=== PATIENT | female | born 1975 | race Caucasian/White ===

== ENCOUNTER → 2018-08-30 | Outpatient (CLI) | payer BC | LOC: SUN.DIA 14:45 | DX: O24.419 Gestational diabetes mellitus in pregnancy, unspecified control (principal); Z3A.26 26 weeks gestation of pregnancy | CPT/HCPCS: G0108 ==

== ENCOUNTER → 2018-09-06 | Outpatient (CLI) | payer BC | LOC: SUN.DIA 10:06 | DX: O24.419 Gestational diabetes mellitus in pregnancy, unspecified control (principal); Z3A.25 25 weeks gestation of pregnancy | CPT/HCPCS: G0108 ==

== ENCOUNTER → 2018-09-11 | Outpatient (CLI) | payer BC | LOC: SUN.DIA 14:08 | DX: O24.419 Gestational diabetes mellitus in pregnancy, unspecified control (principal); Z3A.18 18 weeks gestation of pregnancy ==

== ENCOUNTER → 2018-10-03 | Outpatient (CLI) | payer MEDICAID | LOC: SUN.DIA 12:53 | DX: O24.419 Gestational diabetes mellitus in pregnancy, unspecified control (principal); Z3A.19 19 weeks gestation of pregnancy | CPT/HCPCS: G0108 ==

== ENCOUNTER → 2018-11-07 | Outpatient (CLI) | payer MEDICAID | LOC: SUN.DIA 15:08 | DX: O24.419 Gestational diabetes mellitus in pregnancy, unspecified control (principal); Z3A.24 24 weeks gestation of pregnancy | CPT/HCPCS: G0108 ==

== ENCOUNTER → 2018-12-05 | Outpatient (CLI) | payer MEDICAID | LOC: SUN.DIA 14:13 | DX: O24.419 Gestational diabetes mellitus in pregnancy, unspecified control (principal); Z3A.18 18 weeks gestation of pregnancy | CPT/HCPCS: G0108 ==

== ENCOUNTER → 2019-01-15 | Outpatient (CLI) | payer MEDICAID | LOC: DIA.ED 14:09 → SUN.DIA 16:14 | DX: O24.419 Gestational diabetes mellitus in pregnancy, unspecified control (principal); Z3A.35 35 weeks gestation of pregnancy | CPT/HCPCS: G0108 ==

== ENCOUNTER → 2019-02-05 | Outpatient (CLI) | payer MEDICAID | LOC: DIA.ED 01-25 10:32 | DX: O24.419 Gestational diabetes mellitus in pregnancy, unspecified control (principal); Z3A.34 34 weeks gestation of pregnancy | CPT/HCPCS: G0108 ==

== ENCOUNTER 2019-02-21 06:56 | Inpatient (IN) | payer MEDICAID ==
[~2019-02-21] VITALS: Ht 167.6 cm; Wt 83.6 kg
[2019-02-21] VITALS (33 sets, daily range): BP systolic 12–143; BP diastolic 58–94; PULSE 79–116; TEMP 97.7–98.4
[~2019-02-21 06:56] MED LIST: CONCEPT DHA1 CAP PO
[2019-02-21] MEDS ORDERED: OSCAL 500 TAB500 MG PO (07:45)
[2019-02-21] MEDS ORDERED: COLACE 100100 MG/CAP PO (07:46)
[2019-02-21] MEDS ORDERED: LEVEMIR100 U/ML SQ (07:47)
[2019-02-21] MEDS ORDERED: PEPCID 20MG TAB20 MG PO (07:48)
[2019-02-21 08:42] LABS: BASO # 0.1 (0.0-0.2); BASO % 0.4 % (0.0-2.0); EOS # 0.1 (0.0-0.7); EOS % 1.1 % (0-4.0); GRAN # 8.2 (1.4-6.5); GRAN % 67.1 % (42.2-75.2); HEMOGLOBIN 11.4 g/dl (12.5-16.0); LYMPH # 2.7 (1.2-3.4); LYMPH % 22.2 % (20.0-51.0); MEAN CELL VOLUME 89 fl (80.0-100.0); MEAN CORPUSCULAR HEMOGLOBIN 30 pg (27.0-31.0); MEAN CORPUSCULAR HGB CONC 33 g/dl (33.0-37.0); MEAN PLATELET VOLUME 11.5 fl (7.4-10.4); MONO # 1.1 (0.1-0.6); MONO % 8.5 % (1.7-9.3); PLATELET COUNT 257 K/mm3 (130-400); RED BLOOD COUNT 3.87 M/mm3 (4.10-5.30); REDCELL DISTRIBUTION WIDTH-CV 14.7 % (11.5-14.5)
[2019-02-21 08:45] LABS: HEMATOCRIT 34.5 % (37.0-47.0)
--- NOTE | 2019-02-21 11:21 | NUR ---
1020 PT TO BATHROOM AND THEN TO A SITTING ON THE EDGE OF BED FOR EPIDURAL PLACEMENT. 1032 Bisi GRAYSON AT THE BEDSIDE FOR EPIDURAL PLACEMENT.
--- NOTE | 2019-02-21 11:27 | NUR ---
1045 PT CONTIUNES TO SIT ON EDGE OF BED FOR EPIDURAL PLACEMENT UNABLE TO TRCE FHT'S DUE TO PT'S POSTIONING.
--- NOTE | 2019-02-21 11:34 | NUR ---
1055 EPIDURAL SPACE, 1056 MED DOSE, AND CATH INSERTED, 1057 MORE MEDS GIVEN
--- NOTE | 2019-02-21 14:25 | NUR ---
1337 DR HIDALGO HERE, PT POSITIONED IN FOOTPLATES, PUSHING, SPONTANOUS DELIVERY OF MALE @ 1342, 1347 SPONTANOUS DELIVERY OF THE PLACENTA, FF WITH MASSAGE, PITOCIN DRIP INFUSES @ 333 ML/HR.
[2019-02-22] VITALS (7 sets, daily range): BP systolic 114–139; BP diastolic 76–88; PULSE 81–92; TEMP 97.4–98.6
--- NOTE | 2019-02-22 08:30 | NUR ---
Rests in bed, alert. Request pain medication. 907 Tylenol 650 mg p.o. given per request and as ordered.
[2019-02-22] MEDS ORDERED: PERCOCET 325 MG1 TA2 PO (10:00)
[2019-02-22] MEDS ORDERED: MOTRIN 800800 MG/TAB PO (10:00)
--- NOTE | 2019-02-22 11:08 | NUR ---
Initial visit; Parents thanked for offering congratulations for the of their son and for thanking them for choosing our hospital.
--- NOTE | 2019-02-22 14:30 | NUR ---
Rests in bed, alert. Request pain medication. Ibuprofen 800 mg given as ordered.
[2019-02-23 08:40] VITALS: BP 115/80; PULSE 88; TEMP 98.7
--- NOTE | 2019-02-23 11:09 | NUR ---
Patient was being discharged.
== END 2019-02-23 09:30 | disposition home or self-care (01) | DRG 807 ==
LOC: OB 06:56 → LDR 06:56 → OB 11:47
PROVIDERS: ADMIT Obstetrics & Gynecology
PROC: 10E0XZZ Delivery of Products of Conception, External Approach (ICD-10-PCS; principal; 2019-02-21)
PROC: 3E033VJ Introduction of Other Hormone into Peripheral Vein, Percutaneous Approach (ICD-10-PCS; 2019-02-21)
DX: O24.424 Gestational diabetes mellitus in childbirth, insulin controlled (principal); Z37.0 Single live birth; Z3A.39 39 weeks gestation of pregnancy; O77.0 Labor and delivery complicated by meconium in amniotic fluid; D25.9 Leiomyoma of uterus, unspecified; O69.81X0 Labor and delivery complicated by cord around neck, without compression, not applicable or unspecified
CPT/HCPCS: J2590

== ENCOUNTER 2023-03-30 09:50 | Day surgery (SDC) | payer OTHER ==
[2023-03-30] VITALS (11 sets, daily range): BP systolic 101–127; BP diastolic 65–90; PULSE 60–95; TEMP 97.6–98
[~2023-03-30] VITALS: Ht 167.6 cm; Wt 78.1 kg
[~2023-03-30 09:50] MED LIST changes: +COLACE 100100 MG/CAP PO; +LEVEMIR100 U/ML SQ; +MOTRIN 800800 MG/TAB PO; +OSCAL 500 TAB500 MG PO; +PEPCID 20MG TAB20 MG PO; +PERCOCET 325 MG1 TA2 PO
[2023-03-30] MEDS ORDERED: TAGAMET200 MG PO (10:31)
--- NOTE | 2023-03-30 16:48 | NUR ---
Patient arrived to the unit to room 350 from pacu via bed. Patient drowsy, but easily to awake. LR infusing , dennison draining clear yellow urine in bag. 5 lap site with skin glued intact. No drainage noted at site. 02 2L/NC in use. Pulses present. VSS. Call mcneill within reach. Family at bedside.
--- NOTE | 2023-03-30 19:01 | NUR ---
Roxicodone administered for abdominal pain. Patient wants to have her dennison out and educated the importance of having the dennison inserted. Patient verbalized understanding. 5 lap site dressing dry and intact.
--- NOTE | 2023-03-30 20:00 | NUR ---
PT A&O X4 LAYING IN BED. VSS. 5 ABD SITE GLUED & NO DRAINAGE PRESENT. MONTOYA IN PLACE TO DD WITH CLEAR YELLOW OUTPUT. PT REQUESTING MONTOYA BE TAKEN OUT - EDUCATION PROVIDED. SCDS ON. IVF INFUSING TO RIGHT AC. BED LOWERED & CALL LIGHT IN REACH.
--- NOTE | 2023-03-30 21:47 | NUR ---
2010: PT CALLED OUT AGAIN & REQUESTED WE CALL THE DOCTOR TO SEE IF WE CAN D/C MONTOYA. C/O PAIN FROM MONTOYA / & BURNING. EDUCATION PROVIDED ON USE OF MONTOYA. 2014: CALLED DR MUHAMMAD. ORDERS TO D/C MONTOYA & MONITOR I&O THROUGHOUT THE NIGHT. 2019: D/C MONTOYA W/ TIP INTACT & 10CC OUT OF BALLOON. 200CC OF CLEAR YELLOW OUTPUT IN DRAINAGE BAG. NO DRAINAGE ON PERIPAD. HAT PLACED IN BATHROOM & EDUCATED PT ON USE. 2124: PT AMBULATED TO RESTROOM & VOIDED 400CC. BLADDER SCAN AFTER W/ 50ML.
[2023-03-31 00:02] VITALS: BP_SYST 111
[2023-03-31 03:08] VITALS: BP 100/59; PULSE 72; TEMP 98
[2023-03-31 03:11] VITALS: BP_SYST 100
--- NOTE | 2023-03-31 07:25 | NUR ---
Shift report received from the night nurse, SANJEEV Golden.
--- NOTE | 2023-03-31 07:58 | NUR ---
Patient awake in bed, alert and oriented. 5 lap site with skin glued dry and intact. Patient reports of scant amount of discharge in sonido pad. Patient c/o abdominal pain and rated pain level 6/10. Levsine and roxicodone administered. Informed patient about the plan of walking in the hallway after breakfast. Patient verbalized understanding.
[2023-03-31 08:09] VITALS: BP 96/59; PULSE 75; TEMP 98.7
[2023-03-31 09:00] VITALS: BP_SYST 96
--- NOTE | 2023-03-31 09:25 | NUR ---
Initial visit attempt; Patient sleeping, Journeyman Pressman left card offering God's blessings and information regarding the availability of [facility] at our Hospital.
--- NOTE | 2023-03-31 10:30 | NUR ---
Discharge instruction given, and INT discontinued. Patient has no other questions. Patient states her escort will be available around 1230 for shredder picker.
[2023-03-31 13:00] VITALS: BP_SYST 96
--- NOTE | 2023-03-31 13:24 | NUR ---
Patient discharged home at 1230. Patient has no questions or concerns.
== END 2023-03-31 12:30 | disposition home or self-care (01) ==
LOC: SDCO 09:50 → SURG 16:24 → SDCO 03-31 12:30
DX: D25.1 Intramural leiomyoma of uterus (principal); N80.03 Adenomyosis of the uterus; R33.9 Retention of urine, unspecified; K21.9 Gastro-esophageal reflux disease without esophagitis; Z79.899 Other long term (current) drug therapy; Z97.5 Presence of (intrauterine) contraceptive device; N83.291 Other ovarian cyst, right side
CPT/HCPCS: OP; A4314; J0690; J1100; J1885; J2405; J2704; J3010; J7120